=== PATIENT | female | born 1985 | race Caucasian/White ===

== ENCOUNTER → 2021-03-25 | Outpatient (CLI) | payer BC ==
--- NOTE | 2021-03-25 11:17 | RAD ---
INDICATION: Reason: LOW PELVIC PAIN / Spl. Instructions: / History: COMPARISON: None. TECHNIQUE: Grayscale and color ultrasound images uterus and adnexa. FINDINGS: Uterus: 110 x 60 x 49 mm. 7 mm endometrial stripe. Right Ovary: 30 x 28 x 17 mm. Left Ovary: 34 x 34 x 28 mm. Vascular flow identified to bilateral ovaries. Cyst left ovary measuring up to 25 mm. There is some prominent vascularity to the myometrium. IMPRESSION: * Vascular flow seen to the ovaries. * Small cyst of the left ovary with nodular focus along the wall which could be from debris or some mild internal complexity. * There is a small amount of debris within the endometrial stripe. Electronically signed by: Mike Li MD (03/25/2021 11:14 AM) [id number]
== END ==
LOC: US 10:34
PROVIDERS: ATTEND Obstetrics & Gynecology
DX: N83.292 Other ovarian cyst, left side (principal)
CPT/HCPCS: 76856